=== PATIENT | female | born 1945 | race Caucasian/White ===

== ENCOUNTER 2019-11-17 21:18 | Outpatient (REF) | payer MEDICARE, SELFPAY | END 2019-11-17 21:38 | LOC: NCHCN 21:18 | PROVIDERS: PCP Physician Assistant; Visit Provider Physician Assistant | DX: R30.0 Dysuria (principal) | CPT/HCPCS: 87077; 87086; 87186 ==

== ENCOUNTER 2020-05-31 12:49 | Outpatient (REF) | payer MEDICARE, SELFPAY ==
[2020-05-31 21:29] LABS: Abs Immature Grans 0.01 k/cumm (0.0-0.09); Absolute Basophil Count 0.03 k/cumm (0.0-0.2); Absolute Eosinophil Count 0.18 k/cumm (0.0-0.7); Absolute Lymphocyte Count 2.13 k/cumm (1.2-3.4); Absolute Monocyte Count 0.53 k/cumm (0.11-0.7); Absolute Neutrophil Count 4.44 k/cumm (1.2-6.7); Basophils % 0.4; Eosinophils % 2.5; Immature Grans % 0.1 %; Lymphocytes % 29.1; Mean Corp. HGB Concentration 32.4 g/dL (32.0-36.0); Mean Corpuscular Hemoglobin 29.2 pg (27.0-33.0); Mean Platelet Volume 10.5 fL (8.0-11.0); Monocytes % 7.2; Neutrophils % 60.7; Platelet Count 238 x1000/uL (130-400); RBC 4.11 m/cumm (4.00-5.20); RBC Distribution Width 13.6 % (11.7-14.6); White Blood Cell Count 7.32 k/cumm (4.4-10.8)
[2020-05-31 21:40] LABS: COMMENT (LAB VIEW ONLY) 87.89 mg/dL; Microalb ug/mg Crea 26.6 ug/mg Cr
[2020-05-31 21:47] LABS: ALT 22 U/L (14-59); AST 23 U/L (15-37); Albumin 3.9 g/dL (3.4-5.0); Alkaline Phosphatase 113 U/L (46-116); Anion Gap 8.1 mmol/L (3-11); BUN 20 mg/dL (7-18); Bilirubin, Total 0.7 mg/dL (0.2-1.0); CO2 30.9 mmol/L (21.0-32.0); CREATININE 0.86 mg/dL (0.55-1.02); Calcium 9.4 mg/dL (8.5-10.1); Chloride 104 mmol/L (98-107); Glucose 122 mg/dL (74-106); Potassium 4.3 mmol/L (3.5-5.1); Sodium 143 mmol/L (136-145); TSH (W/Ref FT4) 1.61 uIU/mL (0.36-3.74); Total Protein 7.2 g/dL (6.4-8.2)
[2020-05-31 22:07] LABS: Hemoglobin A1C 8.4 % (3.8-5.6)
== END 2020-05-31 13:09 ==
LOC: NCHCN 12:49
PROVIDERS: PCP Physician Assistant; Visit Provider Physician Assistant
DX: E11.65 Type 2 diabetes mellitus with hyperglycemia (principal); N39.0 Urinary tract infection, site not specified; E03.9 Hypothyroidism, unspecified
CPT/HCPCS: 80053; 82043; 82570; 83036; 84443; 85025; 87086

== ENCOUNTER 2020-10-26 21:13 | Outpatient (REF) | payer MEDICARE, SELFPAY ==
[2020-10-26 19:56] LABS: ALT 20 U/L (14-59); AST 22 U/L (15-37); Albumin 3.9 g/dL (3.4-5.0); Alkaline Phosphatase 111 U/L (46-116); Anion Gap 7.8 mmol/L (3-11); BUN 14 mg/dL (7-18); Bilirubin, Total 0.8 mg/dL (0.2-1.0); CO2 31.2 mmol/L (21.0-32.0); CREATININE 1.01 mg/dL (0.55-1.02); Calcium 9.3 mg/dL (8.5-10.1); Chloride 106 mmol/L (98-107); Estimated GFR 53.29 (mL/min/1.73m2); Glucose 83 mg/dL (74-106); NT-proBNP 54 pg/mL (<300); Potassium 4.5 mmol/L (3.5-5.1); Sodium 145 mmol/L (136-145); TSH (W/Ref FT4) 2.04 uIU/mL (0.36-3.74); Total Protein 7.3 g/dL (6.4-8.2)
[2020-10-26 20:40] LABS: LDL CHOLESTEROL 61 mg/dL (<100)
== END 2020-10-26 21:33 ==
LOC: NCHCN 21:13
PROVIDERS: PCP Physician Assistant; Visit Provider Physician Assistant
DX: E11.65 Type 2 diabetes mellitus with hyperglycemia (principal); E03.9 Hypothyroidism, unspecified; E78.5 Hyperlipidemia, unspecified
CPT/HCPCS: 80053; 83721; 83880; 84443

== ENCOUNTER 2021-07-26 15:08 | Outpatient (REF) | payer MEDICARE, SELFPAY ==
[2021-07-26 19:25] LABS: COMMENT (LAB VIEW ONLY) 103.68 mg/dL
[2021-07-26 19:40] LABS: Microalb ug/mg Crea 26.1 ug/mg Cr
== END 2021-07-26 15:09 | disposition home or self-care (01) ==
LOC: NCHCN 15:08
PROVIDERS: PCP Physician Assistant; Visit Provider Physician Assistant
DX: E11.65 Type 2 diabetes mellitus with hyperglycemia (principal)
CPT/HCPCS: 82043; 82570

== ENCOUNTER 2023-01-15 18:04 | Outpatient (REF) | payer MEDICARE, SELFPAY | END 2023-01-15 18:05 | disposition home or self-care (01) | LOC: NCHCN 18:04 | PROVIDERS: PCP Physician Assistant; Visit Provider Physician Assistant | DX: R30.0 Dysuria (principal) | CPT/HCPCS: 87077; 87086; 87186 ==

== ENCOUNTER 2023-02-13 14:18 | Outpatient (REF) | payer MEDICARE, SELFPAY ==
[2023-02-13 19:43] LABS: ALT 28 U/L (14-59); AST 21 U/L (15-37); Albumin 3.6 g/dL (3.4-5.0); Alkaline Phosphatase 96 U/L (46-116); BUN 18 mg/dL (7-18); Bilirubin, Total 0.5 mg/dL (0.2-1.0); CREATININE 0.9 mg/dL (0.55-1.02); Calcium 9.4 mg/dL (8.5-10.1); Chloride 108 mmol/L (98-107); Estimated GFR 65.44 (mL/min/1.73m2); Glucose 144 mg/dL (74-106); Potassium 4.3 mmol/L (3.5-5.1); Sodium 146 mmol/L (136-145); TSH 2.69 uIU/mL (0.36-3.74); Total Protein 7.1 g/dL (6.4-8.2)
== END 2023-02-13 14:19 | disposition home or self-care (01) ==
LOC: NCHCN 14:18
PROVIDERS: PCP Physician Assistant; Visit Provider Physician Assistant
DX: E11.9 Type 2 diabetes mellitus without complications (principal); E03.9 Hypothyroidism, unspecified
CPT/HCPCS: 80053; 84443

== ENCOUNTER 2023-04-01 18:27 | Outpatient (REF) | payer MEDICARE, SELFPAY | END 2023-04-01 18:28 | disposition home or self-care (01) | LOC: NCHCN 18:27 | PROVIDERS: PCP Physician Assistant; Visit Provider Physician Assistant | DX: R30.0 Dysuria (principal) | CPT/HCPCS: 87086 ==

== ENCOUNTER 2023-08-19 19:27 | Outpatient (REF) | payer MEDICARE, SELFPAY ==
[2023-08-19 19:37] LABS: ALT 17 U/L (14-59); AST 24 U/L (15-37); Albumin 3.8 g/dL (3.4-5.0); Alkaline Phosphatase 114 U/L (46-116); Anion Gap 6.2 mmol/L (3-11); BUN 16 mg/dL (7-18); Bilirubin, Total 0.8 mg/dL (0.2-1.0); CO2 31.8 mmol/L (21.0-32.0); CREATININE 0.9 mg/dL (0.55-1.02); Chloride 103 mmol/L (98-107); Estimated GFR 65.03 (mL/min/1.73m2); Glucose 92 mg/dL (74-106); NT-proBNP 73 pg/mL (<300); Potassium 3.6 mmol/L (3.5-5.1); Sodium 141 mmol/L (136-145); Total Protein 7.9 g/dL (6.4-8.2)
== END 2023-08-19 19:28 | disposition home or self-care (01) ==
LOC: NCHCN 19:27
PROVIDERS: PCP Physician Assistant; Visit Provider Physician Assistant
DX: R60.0 Localized edema (principal); N39.0 Urinary tract infection, site not specified; E11.9 Type 2 diabetes mellitus without complications
CPT/HCPCS: 80053; 83880; 87086

== ENCOUNTER 2024-02-27 09:08 | Outpatient (REF) | payer MEDICARE, SELFPAY | END 2024-02-27 09:09 | disposition home or self-care (01) | LOC: NCHCN 09:08 | PROVIDERS: PCP Physician Assistant; Visit Provider Physician Assistant | DX: R35.0 Frequency of micturition (principal) | CPT/HCPCS: 87086 ==

== ENCOUNTER 2024-05-26 20:27 | Outpatient (REF) | payer MEDICARE, SELFPAY ==
[2024-05-26 21:38] LABS: Abs Immature Grans 0.02 10^3/uL (0.0-0.06); Absolute Basophil Count 0.04 10^3/uL (0.0-0.2); Absolute Eosinophil Count 0.18 10^3/uL (0.0-0.7); Absolute Lymphocyte Count 1.79 10^3/uL (1.2-3.4); Absolute Monocyte Count 0.49 10^3/uL (0.1-0.8); Absolute Neutrophil Count 4.57 10^3/uL (1.2-6.7); Basophils % 0.6 %; Eosinophils % 2.5 %; HCT 40.2 % (36.0-46.0); HGB 13.4 g/dL (11.2-15.7); Immature Grans % 0.3 %; Lymphocytes % 25.2 %; MCH 31.9 pg (27.0-33.0); MCHC 33.3 % (32.0-36.0); MCV 96 fL (80-95); MPV 10.6 fL (8.0-11.0); Monocytes % 6.9 %; Neutrophils % 64.5 %; Platelet Count 166 10^3/uL (130-400); RDW 13.3 % (11.7-14.6); RDW-SD 46.6 fL; WBC 7.09 10^3/uL (4.4-10.8)
[2024-05-26 22:07] LABS: ALT 25 U/L (14-59); AST 22 U/L (15-37); Albumin 3.8 g/dL (3.4-5.0); Alkaline Phosphatase 94 U/L (46-116); Anion Gap 9.2 mmol/L (3-11); BUN 22 mg/dL (7-18); Bilirubin, Total 1.03 mg/dL (0.2-1.0); CO2 30.8 mmol/L (21.0-32.0); CREATININE 1.1 mg/dL (0.55-1.02); Calcium 9.6 mg/dL (8.5-10.1); Chloride 106 mmol/L (98-107); Glucose 95 mg/dL (74-106); Potassium 3.3 mmol/L (3.5-5.1); Sodium 146 mmol/L (136-145); Total Protein 7.5 g/dL (6.4-8.2)
[2024-05-26 22:37] LABS: Bilirubin Negative (Negative); Blood Small (Negative); Clarity Cloudy (Clear); Glucose Negative (Negative); Ketones Negative (Negative); Leukocyte Esterase Large (Negative); Nitrite Negative (Negative); Specific Gravity 1.025 (1.005-1.025); Urobilinogen 0.2 mg/dL (Up to 0.2)
== END 2024-05-26 20:28 | disposition home or self-care (01) ==
LOC: NCHCN 20:27
PROVIDERS: PCP Physician Assistant; Visit Provider Physician Assistant
DX: N89.8 Other specified noninflammatory disorders of vagina (principal); R10.32 Left lower quadrant pain; R82.998 Other abnormal findings in urine; R79.89 Other specified abnormal findings of blood chemistry
CPT/HCPCS: 80053; 81513; 87481; 87661; 81003; 85025; 87086; 87480; 87510; 87660

== ENCOUNTER 2024-09-03 14:08 | Outpatient (REF) | payer MEDICARE, SELFPAY ==
[2024-09-03 19:54] LABS: NT-proBNP 283 pg/mL (<300)
== END 2024-09-03 14:09 | disposition home or self-care (01) ==
LOC: NCHCN 14:08
PROVIDERS: PCP Physician Assistant; Visit Provider Physician Assistant
DX: R60.0 Localized edema (principal)
CPT/HCPCS: 83880

== ENCOUNTER 2024-12-02 21:00 | Outpatient (REF) | payer MEDICARE, SELFPAY ==
[2024-12-02 19:13] LABS: Abs Immature Grans 0.03 10^3/uL (0.0-0.06); Absolute Basophil Count 0.06 10^3/uL (0.0-0.2); Absolute Eosinophil Count 0.16 10^3/uL (0.0-0.7); Absolute Lymphocyte Count 2.17 10^3/uL (1.2-3.4); Absolute Monocyte Count 0.56 10^3/uL (0.1-0.8); Absolute Neutrophil Count 4.79 10^3/uL (1.2-6.7); Basophils % 0.8 %; Eosinophils % 2.1 %; HGB 13.9 g/dL (11.2-15.7); Immature Grans % 0.4 %; Lymphocytes % 27.9 %; MCH 31.7 pg (27.0-33.0); MCHC 33.1 % (32.0-36.0); MCV 96 fL (80-95); MPV 10.3 fL (8.0-11.0); Monocytes % 7.2 %; Neutrophils % 61.6 %; Platelet Count 198 10^3/uL (130-400); RBC 4.38 10^6/uL (3.93-5.22); RDW 12.9 % (11.7-14.6); RDW-SD 45.7 fL; WBC 7.77 10^3/uL (4.4-10.8)
[2024-12-02 19:26] LABS: ALT 13 U/L (14-59); AST 17 U/L (15-37); Albumin 3.9 g/dL (3.4-5.0); Alkaline Phosphatase 98 U/L (46-116); Anion Gap 6.3 mmol/L (3-11); BUN 18 mg/dL (7-18); Bilirubin, Total 0.92 mg/dL (0.2-1.0); CO2 32.7 mmol/L (21.0-32.0); Calcium 10.2 mg/dL (8.5-10.1); Chloride 108 mmol/L (98-107); Estimated GFR 56.95 (mL/min/1.73m2); Glucose 63 mg/dL (74-106); Potassium 3.6 mmol/L (3.5-5.1); Sodium 147 mmol/L (136-145); Total Protein 7.7 g/dL (6.4-8.2)
== END 2024-12-02 21:01 | disposition home or self-care (01) ==
LOC: NCHCN 21:00
PROVIDERS: PCP Physician Assistant; Visit Provider Physician Assistant
DX: K74.60 Unspecified cirrhosis of liver (principal)
CPT/HCPCS: 80053; 85025

== ENCOUNTER 2025-05-25 18:24 | Outpatient (REF) | payer MEDICARE, SELFPAY ==
[2025-05-25 22:59] LABS: TSH (W/Ref FT4) 2.25 uIU/mL (0.36-3.74)
== END 2025-05-25 18:25 | disposition home or self-care (01) ==
LOC: NCHCN 18:24
PROVIDERS: PCP Physician Assistant; Visit Provider Physician Assistant
DX: E03.9 Hypothyroidism, unspecified (principal)
CPT/HCPCS: 84443

== ENCOUNTER 2025-09-14 20:35 | Outpatient (REF) | payer MEDICARE, SELFPAY ==
[2025-09-14 21:02] LABS: Anion Gap 8.0 mmol/L (3-11); BUN 27 mg/dL (7-18); CO2 35.0 mmol/L (21.0-32.0); Calcium 9.9 mg/dL (8.5-10.1); Chloride 100 mmol/L (98-107); Glucose 119 mg/dL (74-106); Potassium 3.4 mmol/L (3.5-5.1); Sodium 143 mmol/L (136-145)
== END 2025-09-14 20:36 | disposition home or self-care (01) ==
LOC: NCHCN 20:35
PROVIDERS: PCP Physician Assistant; Visit Provider Physician Assistant
DX: I10 Essential (primary) hypertension (principal)
CPT/HCPCS: 80048

== ENCOUNTER 2025-10-13 15:48 | Outpatient (REF) | payer MEDICARE, SELFPAY ==
[2025-10-13 19:05] LABS: Potassium 3.1 mmol/L (3.5-5.1)
== END 2025-10-13 15:49 | disposition home or self-care (01) ==
LOC: NCHCN 15:48
PROVIDERS: PCP Physician Assistant; Visit Provider Physician Assistant
DX: E87.6 Hypokalemia (principal)
CPT/HCPCS: 84132